=== PATIENT | male | born 1950 | race Caucasian/White ===

== ENCOUNTER 2017-12-04 15:13 | Emergency (ER) | payer OTHER, MEDICAID ==
[~2017-12-04] VITALS: Ht 167.6 cm; Wt 61.2 kg
[2017-12-04 16:26] VITALS: BP 134/87
[2017-12-04] MEDS ORDERED: ONDANSETRON HCL/PF 4 MG/2 ML VIAL ONE (16:58)
[2017-12-04] MEDS ORDERED: IV NS 0.9% 1,000 ML BAG IV ONE (17:00)
[2017-12-04] MEDS ORDERED: ONDANSETRON HCL/PF 4 MG/2 ML VIAL IVP ONE (17:00)
[2017-12-04 17:11] LABS: BASOPHILS # (AUTO) 0.1 /CMM (0.0-0.2); BASOPHILS % (AUTO) 0.7 % (0.0-2.0); EOSINOPHILS # (AUTO) 0.1 /CMM (0.0-0.7); HEMATOCRIT 24 % (39-51); HEMOGLOBIN 7.7 g/dL (13.5-17.5); LYMPHOCYTES # (AUTO) 1.4 /CMM (0.8-4.8); MEAN CORPUSCULAR HEMOGLOBIN 20 PG (26.0-33.0); MEAN CORPUSCULAR HGB CONC 33 g/dl (31.0-36.0); MEAN CORPUSCULAR VOLUME 62 fL (80-96); MONOCYTES # (AUTO) 1.1 /CMM (0.1-1.30); MONOCYTES % (AUTO) 11.5 % (2.0-12.0); NEUTROPHILS # (AUTO) 7.1 /CMM (1.8-8.9); NEUTROPHILS % (AUTO) 72.8 % (43.0-81.0); PLATELET COUNT (AUTO) 425 /CMM (150-450); RDW COEFFICIENT OF VARIATION 14.4 (11.5-15.0); WHITE BLOOD COUNT (AUTO) 9.8 K/uL (4.3-11.0)
[2017-12-04 17:22] LABS: CALCIUM, SERUM 9.1 mg/dL (8.5-10.1); CREATININE 1.3 mg/dL (0.6-1.3); POTASSIUM 4.4 mmol/L (3.5-5.1)
[2017-12-04 17:24] LABS: INR 1.04 (0.85-1.15)
[2017-12-04 17:28] LABS: ALBUMIN 2.5 g/dL (3.4-5.0); BILIRUBIN,DIRECT 0.1 mg/dL (0.0-0.2); BILIRUBIN,TOTAL 0.2 mg/dL (0.2-1.0); TOTAL PROTEIN, SERUM 8.2 g/dL (6.4-8.2)
[2017-12-04] MEDS: IV NS 0.9% 1,000 ML IV ONE ×2 (17:38→17:55)
--- NOTE | 2017-12-04 17:55 | NUR ---
PT TO LEAVE AFTER 2ND LITER OF FLUID.
--- NOTE | 2017-12-04 17:55 | NUR ---
PT SIGNED AMA. PT WAS GOING TO BE ADMITTED BY DR. ERICKSON, BUT PT REFUSED.
--- NOTE | 2017-12-04 17:55 | NUR ---
Patient does not wish to proceed with medical care recommended by Dr. ERICKSON. Patient given information related to possible complications, up to and including , which could occur as a result of leaving the hospital at this time. Patient verbalizes understanding of risks involved due to leaving against medical advice. Patient has signed AMA form.
--- NOTE | 2017-12-04 19:33 | NUR ---
Patient discharged to home in stable condition. Written and verbal after care instructions given. Patient verbalizes understanding of instruction.IV removed. Catheter intact and site benign. Pressure and 4x4 applied to site. No bleeding noted. VSS.
--- NOTE | 2017-12-04 19:33 | NUR ---
PT REC'D ACI AND NEW PANTS. PT AMBULATED OUT WITH A STEADY GAIT.
== END 2017-12-04 19:42 | disposition left against medical advice (07) ==
LOC: ER 15:15
DX: E86.0 Dehydration (principal); R53.1 Weakness; Z59.0 Homelessness
CPT/HCPCS: 36415; 80048-TC; 80076-TC; 83735-TC; 85025-TC; 85730-TC; A4606; J2405; J7030; Z7610